=== PATIENT | male | born 1955 | race Caucasian/White ===

== ENCOUNTER → 2021-09-05 10:27 | Outpatient (CLI) | payer MEDICARE, SELFPAY ==
--- NOTE | ~2021-09-05 | XR_ITS ---
XR chest 2V DATE: 09/05/2021 10:41 INDICATION: Cough TECHNIQUE: 2 views COMPARISON: 05/23/2014 2 view chest FINDINGS: Normal heart size. No hilar or mediastinal enlargement. There is mild discoid atelectasis or scarring at the middle and right lower lobes. No pulmonary infiltrate or consolidation, pulmonar y vascular congestion or pleural effusion or pneumothorax. IMPRESSION: No active cardiopulmonary disease Reviewed, dictated and finalized at location B.
== END ==
PROVIDERS: PCP Family Medicine; Visit Provider Family Medicine
DX: R05.9 Cough, unspecified (principal)
CPT/HCPCS: 71046

== ENCOUNTER 2021-10-25 00:44 | Day surgery (SDC) | payer MEDICARE, SELFPAY ==
[2021-10-11 14:34] VITALS: BMI 31.0
--- NOTE | 2021-10-24 18:54 | WPDANESEPPF ---
Anes - Initial Pre Proc Eval Procedure: Operation Date: 10/25/21 08:00 Proposed Procedures p Screening Colonoscopy - Marco Fonseca MD Date/Time: 10/24/21 18:54 Surgeon: Marco Fonseca MD Pre Op Diagnosis: hx of colon polyps Patient Data Age: 66 Gender: M Height: 1.8 m Weight: 101 kg Allergies Allergy/AdvReac Type Severity Reaction Status Date / Time No Known Drug Allergies Allergy Unknown UNKNOWN Verified 10/25/21 06:55 Home Medications Medication Instructions Recorded Confirmed Type diphenhydramine HCl 25 mg tablet 25 mg PO QHS 03/08/21 10/11/21 History (Benadryl Allergy) losartan 25 mg tablet 12.5 mg PO DAILY #30 tabs 09/05/21 10/11/21 Rx sodium sul 1.479 gram-potas ch See Rx Instructions PO PER PKG DIR 09/14/21 10/11/21 Rx 0.188 gram-magnes sul 0.225 gram #24 tabs tablet (Sutab) sildenafil 100 mg tablet (Viagra) 100 mg PO DAILY PRN sexual activity 10/25/21 10/11/21 History Patient hx anesthesia problems: none Family hx anesthesia problems: none Results Review: All pre-operative results and documents have been reviewed as part of the pre-operative evaluation. [facility] Past Medical History Medical History (Updated 10/24/21 @ 18:54 by Hiram Glover DO) Hypertension Osteoarthritis Surgical History Surgical History (Updated 10/24/21 @ 18:54 by Hiram Glover DO) History of cholecystectomy Family History Family History Mother Patient's mother is in good health Sibling Patient's sister is in good health Grandparent Family history of alcoholism Family history of kidney disease Acute myocardial infarction Father Patient's father is , Onset Age: 36 Sibling Hypertension Cerebrovascular accident Sibling Acute myocardial infarction Social History Social History Smoking status: Former smoker Second hand tobacco smoke exposure: No Alcohol intake: current Drinks per week: 2 Substance use: never Substance use type: does not use Living arrangements: with family Spiritual care concerns: No Anes - Eval Final PreProcedure Day of Procedure 10/24/21 18:54 Patient weight: obese Heart: regular rate and rhythm Lungs: clear to auscultation Airway: Mallampati scale class II Neurological: alert and oriented Last oral intake: >/= 8 hours ASA classification: III Emergent: no Anesthetic plan: proceed Anesthesia type and monitoring: general GIVS and standard monitoring Results Review: All pre-operative results and documents have been reviewed as part of the pre-operative evaluation. Informed Consent: The patient's anesthetic plan and its attendant risks and benefits were discussed with the patient/family/POA. Questions were solicited and answers provided to the satisfaction of the patient/family/POA.
[2021-10-25 06:55] VITALS: BP 128/93; PULSE 72; RESP 16; TEMP 36.6; O2SAT 100
[2021-10-25] MEDS: LACTATED RINGERS 1,000 ML 150 ML IV CONT (07:04)
--- NOTE | 2021-10-25 07:19 | P.HP_ITS ---
H&P: HPI History of Present Illness Date/Time: 10/25/21 07:19 Chief Complaint: Neoplasia screening. Narrative: This is a 66-year-old white male patient presents for screening colonoscopy. Patient's current weight appetite and bowel movements are normal. He denies abdominal pain. Patient has had no bleeding. Family history noncontributory. Patient did have a benign hyperplastic colon polyp identified by endoscopy 6 years ago. Patient presents today for neoplasia screening. Review of Systems Review of Systems: Review systems noncontributory. [facility] Past Medical History Medical History (Updated 10/25/21 @ 07:20 by Marco Fonseca MD) Hypertension Osteoarthritis Surgical History Surgical History (Updated 10/24/21 @ 18:54 by Hiram Glover DO) History of cholecystectomy Family History Family History Mother Patient's mother is in good health Sibling Patient's sister is in good health Grandparent Family history of alcoholism Family history of kidney disease Acute myocardial infarction Father Patient's father is , Onset Age: 36 Sibling Hypertension Cerebrovascular accident Sibling Acute myocardial infarction Social History Social History Smoking status: Former smoker Second hand tobacco smoke exposure: No Alcohol intake: current Drinks per week: 2 Substance use: never Substance use type: does not use Living arrangements: with family Spiritual care concerns: No Meds Home Medications and Allergies Home Medications Medication Instructions Recorded Confirmed Type diphenhydramine HCl 25 mg tablet 25 mg PO QHS 03/08/21 10/11/21 History (Benadryl Allergy) losartan 25 mg tablet 12.5 mg PO DAILY #30 tabs 09/05/21 10/11/21 Rx sodium sul 1.479 gram-potas ch See Rx Instructions PO PER PKG DIR 09/14/21 10/11/21 Rx 0.188 gram-magnes sul 0.225 gram #24 tabs tablet (Sutab) sildenafil 100 mg tablet (Viagra) 100 mg PO DAILY PRN sexual activity 10/25/21 10/11/21 History Allergies Allergy/AdvReac Type Severity Reaction Status Date / Time No Known Drug Allergies Allergy Unknown UNKNOWN Verified 10/25/21 06:55 Vital Signs Vital Signs - 24 hr 10/25/21 06:55 Temperature 97.8 F Pulse Rate 72 Respiratory Rate 16 Blood Pressure 128/93 H Pulse Oximetry 100 Oxygen Delivery Room Air Exam Narrative: Physical exam reveals patient to be alert. Vital signs stable. HEENT exam is unremarkable. Patient is anicteric. Lungs are clear to auscultation and percussion. Heart is without murmur or extra sounds. Abdominal exam bowel sounds are present soft nontender with no organomegaly. Digital external rectal exam is normal. Assessment and Plan Assessment and plan (1) Encounter for screening colonoscopy: Code(s): Z12.11 - Encounter for screening for malignant neoplasm of colon Status: Acute Assessment and Plan: Patient presents today for screening colonoscopy. Appears to be at average risk for colon polyps. Further recommendations may be given after endoscopy.
[2021-10-25 08:21] VITALS: BP 102/76; PULSE 67; RESP 18; O2SAT 97
[2021-10-25 08:31] VITALS: BP 111/76; PULSE 57; RESP 16; O2SAT 98
[2021-10-25 08:41] VITALS: BP 154/87; PULSE 51; RESP 18; O2SAT 99
== END 2021-10-25 08:50 | disposition home or self-care (01) ==
PROVIDERS: PCP Family Medicine; Visit Provider Internal Medicine Gastroenterology
PROC: 0DJD8ZZ Inspection of Lower Intestinal Tract, Via Natural or Artificial Opening Endoscopic (ICD-10-PCS; CPT 45378; principal; 2021-10-25 08:00)
DX: Z12.11 Encounter for screening for malignant neoplasm of colon (principal); D12.7 Benign neoplasm of rectosigmoid junction; K64.8 Other hemorrhoids; K57.30 Diverticulosis of large intestine without perforation or abscess without bleeding; I10 Essential (primary) hypertension; M19.90 Unspecified osteoarthritis, unspecified site; Z90.49 Acquired absence of other specified parts of digestive tract; Z87.891 Personal history of nicotine dependence; E66.9 Obesity, unspecified; Z68.31 Body mass index [BMI] 31.0-31.9, adult
CPT/HCPCS: 45380; 88305; J2704; J7120

== ENCOUNTER → 2021-11-27 10:56 | Outpatient (REF) | payer MEDICARE, SELFPAY | LOC: ANHLAB 10:56 | PROVIDERS: PCP Family Medicine; Visit Provider Nurse Practitioner | DX: C44.311 Basal cell carcinoma of skin of nose (principal) | CPT/HCPCS: 88305 ==

== ENCOUNTER 2022-01-07 11:32 | Outpatient (NON) | payer MEDICARE, SELFPAY | END 2022-01-07 11:33 | disposition home or self-care (01) | PROVIDERS: PCP Family Medicine; Visit Provider Nurse Practitioner | DX: C44.311 Basal cell carcinoma of skin of nose (principal) | CPT/HCPCS: 88305; 88331 ==

== ENCOUNTER 2022-02-28 14:25 | Outpatient (CLI) | payer MEDICARE, SELFPAY ==
--- NOTE | 2022-02-28 14:42 | ECG_ITS ---
Measurements Intervals [place] Rate: 63 P: 16 [place]: 198 QRS: -21 QRSD: 95 T: -5 QT: 411 QTc: 423 Interpretive Statements SINUS RHYTHM BORDERLINE ST-T WAVE ABNORMALITY- INFERIOR LEADS BORDERLINE ECG NO PREVIOUS ECG AVAILABLE FOR COMPARISON Electronically Signed On 02-28-2022 15:03:48 CDT by Fercho Bryant D.O.
[2022-02-28 18:37] LABS: Alanine Aminotransferase 27 U/L (6-50); Albumin Level 4.5 g/dL (3.5-5.1); Alkaline Phosphatase 92 U/L (38-126); Anion Gap 11 mmol/L (8-16); Aspartate Amino Transferase 27 U/L (17-59); Bilirubin,Total 0.8 mg/dL (0.2-1.3); Blood Urea Nitrogen 18 mg/dL (9-20); Calcium 8.8 mg/dL (8.4-10.2); Carbon Dioxide 22 mmol/L (22-30); Chloride 105 mmol/L (98-107); Cholesterol 192 mg/dL (0-200); Estimated Glomerular Filt Rate > 60; Glucose 88 mg/dL (65-110); HDL Direct 39 mg/dL; Potassium 4.2 mmol/L (3.4-5.0); Sodium 138 mmol/L (137-145); Triglycerides 176 mg/dL (<150)
[2022-02-28 18:48] LABS: LDL Cholesterol Direct 109 mg/dL
== END 2022-02-28 14:26 | disposition home or self-care (01) ==
LOC: ANHLAB 14:28
PROVIDERS: PCP Family Medicine; Visit Provider Physician Assistant
DX: R07.9 Chest pain, unspecified (principal); Z13.220 Encounter for screening for lipoid disorders; Z13.1 Encounter for screening for diabetes mellitus; R94.31 Abnormal electrocardiogram [ECG] [EKG]
CPT/HCPCS: 36415; 80053; 80061; 93005

== ENCOUNTER 2022-05-26 08:20 | Emergency (ER) | payer MEDICARE, SELFPAY ==
[2022-05-26 08:39] VITALS: BP 122/95; PULSE 89; RESP 16; TEMP 36.9; O2SAT 98
--- NOTE | 2022-05-26 08:54 | ED.URI ---
HPI - URI/Sore Throat General Chief Complaint: Upper Respiratory Infection Stated Complaint: SINUS CONGESITON Time Seen by Provider: 05/26/22 08:44 Source: patient Mode of arrival: ambulatory Limitations: no limitations History of Present Illness HPI Narrative: Patient presents today with a 4 day history of nasal congestion and sinus pressure with postnasal drip. Denies fever. He has been taking NyQuil and Benadryl with mild relief. Related Data Home Medications Medication Instructions Recorded Confirmed diphenhydramine HCl 25 mg tablet 25 mg PO QHS 03/08/21 05/26/22 (Benadryl Allergy) sildenafil 100 mg tablet (Viagra) 100 mg PO DAILY PRN sexual activity 10/25/21 05/26/22 Allergies Allergy/AdvReac Type Severity Reaction Status Date / Time No Known Drug Allergies Allergy Unknown UNKNOWN Verified 05/26/22 08:36 Review of Systems Review of Systems: CONSTITUTIONAL: Denies body aches, fever, chills, or sweats. EYES: Denies visual changes, redness, or discharge. ENT: Denies rhinorrhea, sore throat, or otalgia.+ congestion, postnasal drip, sinus pressure CARDIOVASCULAR: Denies chest pain, palpitations, or edema. RESPIRATORY: Denies cough or dyspnea. GASTROINTESTINAL: Denies abdominal pain, nausea, vomiting, or diarrhea. GENITOURINARY: Denies dysuria or hematuria. SKIN: Denies rash, itching, or wounds. MUSCULOSKELETAL: Denies back pain, joint pain, or myalgia. NEUROLOGIC: Denies headache, numbness, tingling, or weakness. PSYCH: Denies depression or anxiety. [facility] Past Medical History Medical History Hx of skin malignancy Hypertension Osteoarthritis Surgical History Surgical History History of cholecystectomy Family History Family History Mother Patient's mother is in good health Sibling Patient's sister is in good health Grandparent Family history of alcoholism Family history of kidney disease Acute myocardial infarction Father Patient's father is , Onset Age: 36 Sibling Hypertension Cerebrovascular accident Sibling Acute myocardial infarction Social History Social History Smoking status: Former smoker Second hand tobacco smoke exposure: No Alcohol intake: current Drinks per week: 2 Substance use: never Substance use type: does not use Lack of Transportation: No Lack of Food: Never True Current Housing: I Have Housing Concerned About Future Housing: No Difficulty Paying Gas/Electric Bills: No Difficulty Paying for Meds: No Currently Unemployed: No Education: High School Diploma/GED Difficulty w/ Childcare or Family Care: No Living arrangements: with family Spiritual care concerns: No Comments At time of signature, I have reviewed and agree with nursing past medical, surgical, social and family history unless otherwise noted. Please see nursing chart for further information. There is no relevant family history pertinent to the presenting complaint Exam Narrative: GENERAL: Well-appearing, well-nourished, and in no acute distress. HEAD: Normocephalic, atraumatic. EYES: EOMI. No redness or drainage. Conjunctivae normal. ENT: Mucous membranes pink and moist. Nares congested. Bilateral nasal turbinates normal with rhinorrhea. TMs normal bilaterally. Throat normal. Uvula midline. NECK: Normal AROM. Supple. No lymphadenopathy. CHEST: No respiratory distress. Clear to auscultation. HEART: Regular rate and rhythm. No murmur appreciated. Normal peripheral pulses. EXTREMITIES: Normal range of motion. No edema. SKIN: Warm, dry, no rash. Capillary refill normal. Normal skin turgor. NEURO: No focal deficits. Alert and oriented x3. Gait steady. PSYCH: Normal affect. No signs of
== END 2022-05-26 09:05 | disposition home or self-care (01) ==
PROVIDERS: Emergency Provider Nurse Practitioner; PCP Family Medicine
DX: J06.9 Acute upper respiratory infection, unspecified (principal); I10 Essential (primary) hypertension; M19.90 Unspecified osteoarthritis, unspecified site; Z85.828 Personal history of other malignant neoplasm of skin; Z87.891 Personal history of nicotine dependence
CPT/HCPCS: 99213; G0463

== ENCOUNTER 2023-03-05 09:42 | Outpatient (CLI) | payer MEDICARE, SELFPAY ==
[2023-03-05 10:27] LABS: Alanine Aminotransferase 38 U/L (6-50); Albumin Level 4.6 g/dL (3.5-5.1); Alkaline Phosphatase 85 U/L (38-126); Anion Gap 6 mmol/L (8-16); Aspartate Amino Transferase 26 U/L (17-59); Bilirubin,Total 0.9 mg/dL (0.2-1.3); Blood Urea Nitrogen 21 mg/dL (9-20); Calcium 8.8 mg/dL (8.4-10.2); Carbon Dioxide 25 mmol/L (22-30); Chloride 107 mmol/L (98-107); Cholesterol 201 mg/dL (0-200); Estimated Glomerular Filt Rate > 60; Glucose 96 mg/dL (65-110); HDL Direct 40 mg/dL; Potassium 4.5 mmol/L (3.4-5.0); Sodium 138 mmol/L (137-145); Triglycerides 186 mg/dL (<150)
[2023-03-05 10:38] LABS: LDL Cholesterol Direct 117 mg/dL
[2023-03-05 10:56] LABS: Prostate Specific Antigen 0.5 ng/mL (< OR = 4.0)
== END 2023-03-05 09:43 | disposition home or self-care (01) ==
PROVIDERS: PCP Family Medicine; Visit Provider Physician Assistant
DX: Z12.5 Encounter for screening for malignant neoplasm of prostate (principal); I10 Essential (primary) hypertension; Z13.220 Encounter for screening for lipoid disorders; Z13.1 Encounter for screening for diabetes mellitus
CPT/HCPCS: 36415; 80053; 80061; 84153; G0103

== ENCOUNTER 2025-04-25 14:45 | Emergency (ER) | payer MEDICARE, SELFPAY ==
--- NOTE | 2025-04-25 14:48 | ED_ITS ---
HPI - URI/Sore Throat General Chief Complaint: Upper Respiratory Infection Stated Complaint: Sinus Infection Symptoms Time Seen by Provider: 04/25/25 14:55 Source: patient Mode of arrival: ambulatory Limitations: no limitations History of Present Illness HPI Narrative: Gamaliel is a 70-year-old male patient presenting to the clinic today with complaints of possible sinus infection x 2 days. He reports he is having nasal congestion, cough, body aches, sinus pressure, fatigue, and feeling feverish. Has taken Tylenol and antihistamines for his symptoms. Related Data Home Medications ?Medication ?Instructions ?Recorded ?Confirmed ?Last Taken ?Type diphenhydramine HCl 25 mg tablet 25 mg PO QHS 03/08/21 04/25/25 10/23/21 History (Benadryl Allergy) Allergies Allergy/AdvReac Type Severity Reaction Status Date / Time No Known Drug Allergies Allergy Unknown UNKNOWN Verified 04/25/25 14:49 Review of Systems Review of Systems: Pertinent positives per HPI. Patient denies any fever, chills, rash, headache, visual changes, dizziness, shortness of breath, chest pain, palpitations, nausea, vomiting, diarrhea, constipation, abdominal pain, or any urinary issues. [facility] Past Medical History Medical History Osteoarthritis Hypertension Surgical History Surgical History History of cholecystectomy Family History Family History Mother Patient's mother is in good health Sibling Patient's sister is in good health Grandparent Family history of alcoholism Family history of kidney disease Acute myocardial infarction Father Patient's father is , Onset Age: 36 Sibling Hypertension Cerebrovascular accident Sibling Acute myocardial infarction Social History Social History Smoking status: Former smoker Second hand tobacco smoke exposure: No Smoking end date: 02/27/82 Alcohol intake: current Drinks per week: 2 Substance use: never Substance use type: does not use Lack of Transportation: No Lack of Food: Never True Current Housing: I Have Housing Concerned About Future Housing: No Difficulty Paying Gas/Electric Bills: No Difficulty Paying for Meds: No Currently Unemployed: No Education: High School Diploma/GED Difficulty w/ Childcare or Family Care: No Living arrangements: with family Spiritual care concerns: No Comments At the time of my signature, I reviewed and agree with the nursing past medical, surgical, social, and family history. There is no relevant family history pertinent to the patient complaint. Exam Narrative: General: Well-developed, well nourished, in no apparent distress Head: Normocephalic, atraumatic Eyes: Pupils equally round and reactive to light bilaterally, EOM intact, sclera and conjunctive clear, no discharge, lids normal Ears: TMs intact and clear, ear canals clear, no drainage, grossly hearing normal. Nose: Nares patent, clear nasal discharge, mild inflammation, no sinus tenderness. Mouth: Oral pharynx red without lesions or masses, good dentition, MMM. Postnasal drip Neck: Supple, trachea midline, no enlargement of anterior or posterior cervical nodes, no thyroid masses or goiter palpable. Cardio: Regular rate and rhythm, s1 and s2 normal, no murmur appreciated. Resp: Clear to auscultation bilaterally, no rhonchi, rales, wheezing or rubs Course Course Level of Care: Express Care Visit Vital Signs Vital signs: Vital Signs Temperature 36.7 C 04/25/25 14:53 Pulse Rate 85 04/25/25 14:53 Respiratory Rate 20 04/25/25 14:53 Blood Pressure 111/75 04/25/25 14:53 Pulse Oximetry 100 04/25/25 14:53 Oxygen Delivery Room Air 04/25/25 14:53 Temperature 36.7 C 04/25/25 14:53 Pulse Rate 85 04/25/25 14:53 Respiratory Rate 20 04/25/25 14:53 Blood Pressure 111/75 04/25/25 14:53 Pulse Oximetry 100 04/25/25 14:53 Oxygen Delivery Room Air 04/25/25 14:53 MDM MDM Narrative Medical decision making narrative: At the time of visit patient is resting comfortably on the exam table. Patient appears to be nontoxic. Complaints of possible sinus infection x 2 days. He reports he is having nasal congestion, cough, body aches, sinus pressure, fatigue, and feeling feverish. Has taken Tylenol and antihistamines for his symptoms. On exam patient has bilateral TMs intact and clear, clear nasal drainage, mild anterior turbinate inflammation, oral pharynx red with postnasal drip, no cervical lymphadenopathy, lung sounds are clear, heart rates regular rate and rhythm. COVID and influenza testing were ordered. Labs: COVID and influenza testing was performed and were negative in the clinic today. Plan: I suspect patient has upper respiratory infection. Supportive measures were discussed with the patient and they voiced understanding discharge instructions and agrees to treatment plan. Return precautions reviewed Differential Diagnosis Differential Diagnosis: Differential diagnostic considerations for upper respiratory infection include upper respiratory infection, croup, otitis media, sinusitis, viral infection, bronchitis, influenza, pharyngitis, strep, uvulitis. Discharge Plan Discharge Clinical Impression: Upper respiratory infection Qualifiers: URI type: unspecified URI Qualified Code(s): J06.9 - Acute upper respiratory infection, unspecified Patient Disposition: Home Condition: Stable Instructions: Antibiotic Form, Cold Symptoms (ED) Additional Instructions: COVID and influenza testing was negative in the clinic today. May take Coricidin HBP for cold/flu symptoms Increase fluids and stay well hydrated May take Tylenol or motrin as directed on bottle for pain/fever May use Flonase 1 spray in each nare daily May take OTC antihistamines such as Zyrtec or Claritin daily as directed on bottle May apply Vicks vapor rub to chest to open sinuses Sinus rinses for congestion Cepacol spray, cough drops, throat lozenges, warm tea with honey/lemon, gargle salt water to soothe throat BRAT diet for diarrhea Clear liquids x 24 hours then advance as tolerated for nausea/vomiting Go to the ED if you develop a worsening in your condition- high fever not controlled by Tylenol or Motrin, dehydration, weakness, lethargy, shortness of breath, or chest pain. Follow up with your PCP in 3-5 days if symptoms persist. Patient Language: Welsh Prescriptions: No Action diphenhydramine HCl [Benadryl Allergy] 25 mg tablet 25 mg PO QHS sildenafil [Viagra] 100 mg tablet 100 mg PO DAILY PRN (Reason: sexual activity) Qty: 10 11RF Rx Instructions: administer 30 minutes to 4 hours before activity rosuvastatin 5 mg tablet 5 mg PO DAILY Qty: 90 3RF losartan 25 mg tablet 12.5 mg PO DAILY Qty: 45 3RF meloxicam 15 mg tablet 15 mg PO DAILY Qty: 30 1RF Follow-up/Referrals: PHYSICIAN,AIRCRAFT INSPECTOR [Primary Care Provider, Internal Medicine] Time of Disposition: 15:14 Quality NIHSS Nursing Documentation ED NIHSS nursing documentation: reviewed/agree
[2025-04-25 14:53] VITALS: BP 111/75; PULSE 85; RESP 20; TEMP 36.7; O2SAT 100
[2025-04-25 15:21] LABS: EDCOVIDSCREEN Negative (Negative); EDINFLUASCREEN Negative (Negative); EDINFLUBSCREEN Negative (Negative)
== END 2025-04-25 15:16 | disposition home or self-care (01) ==
PROVIDERS: Emergency Provider Nurse Practitioner Family
DX: J06.9 Acute upper respiratory infection, unspecified (principal); Z20.822 Contact with and (suspected) exposure to COVID-19; M19.90 Unspecified osteoarthritis, unspecified site; I10 Essential (primary) hypertension; Z90.49 Acquired absence of other specified parts of digestive tract; Z87.891 Personal history of nicotine dependence
CPT/HCPCS: 87426; 87804; 99212; G0463